=== PATIENT | female | born 2005 | race African-American/Black ===

== ENCOUNTER 2024-07-26 03:12 | Emergency (ER) | payer BC ==
[2024-07-26 04:26] LABS: #Basophils 0.04 10x3/uL (0.0-0.2); #Eosinophils 0.25 10x3/uL (0.0-0.5); #Neutrophils 3.83 10x3/uL (1.5-8.4); %Basophils 0.6 % (0.0-2.0); %Eosinophils 3.9 % (0.0-6.0); %Lymphocytes 29.4 % (18.0-47.0); %Monocytes 6.2 % (0.0-10.0); %Neutrophils 59.6 % (40.0-75.0); BHCG - Serum Negative (NEGATIVE); Hematocrit 36.6 % (34.9-44.5); Hemoglobin 11.8 g/dL (12.0-15.5); Mean Corpuscular HGB CONC 32.2 g/dL (32.0-36.0); Mean Corpuscular Hemoglobin 28.2 pg (27.0-33.0); Mean Corpuscular Volume 87.6 fL (81.6-98.3); Mean Platelet Volume 11.7 fL (7.4-10.4); Platelet Count 220 10x3/uL (150-450); Pregs Control Background? CLEAR/WHITE (CLR/WHITE); Pregs Control Bar Appear? YES (CONTROL BAR); Red Blood Cell (RBC) Count 4.18 10x6/uL (3.90-5.03); White Blood Cell (WBC) Count 6.4 10x3/uL (3.5-10.5)
[2024-07-26 04:27] LABS: Acetaminophen Less than 10 mcg/mL (Less than 10); Alcohol Less than 10.0 mg/dL (Less than 10); Salicylate Less than 8.0 mg/dL (Less than 8.0)
[2024-07-26 04:42] LABS: ALT (SGPT) 12 U/L (8-55); AST (SGOT) 14 U/L (5-34); Albumin 3.5 g/dL (3.5-5.0); Alkaline Phosphatase 44 U/L (40-100); Anion Gap 14 mmol/L (10-20); BUN (Urea Nitrogen) 7 mg/dL (7.0-18.7); Bilirubin, Total 0.2 mg/dL (0.2-1.2); Calc. Creatinine Clearance 0 mL/min (70-130); Carbon Dioxide 22 mmol/L (22-29); Chloride 110 mmol/L (98-107); Estimated GFR 101; Globulin 3.2 g/dL (2.4-3.5); Glucose 102 mg/dL (70-105); Potassium 3.7 mmol/L (3.5-5.1); Protein, Total 6.7 g/dL (6.0-8.3); Sodium 142 mmol/L (136-145)
[2024-07-26 05:32] LABS: Amphetamine Not Detected (NotDetected); Barbiturates Screen Not Detected (NotDetected); Benzodiazepine Screen Not Detected (NotDetected); Cocaine Metabolite Screen Not Detected (NotDetected); Methadone Not Detected (NotDetected); Methamphetamine Not Detected (NotDetected); Opiate Screen Not Detected (NotDetected); Oxycodone Screen Not Detected (NotDetected); Phencyclidine (PCP) Not Detected (NotDetected); THC/Cannabinoid Screen Not Detected (NotDetected); Tricyclic Screen Not Detected (NotDetected)
== END 2024-07-26 05:59 | disposition home or self-care (01) ==
LOC: CSHERS 03:12
DX: R45.88 Nonsuicidal self-harm (principal)
CPT/HCPCS: 36415; 80053; 80306; 80307; 84703; 85025; 99285